=== PATIENT | female | born 2000 | race Hispanic/Latino ===

== ENCOUNTER → 2023-03-03 13:58 | Outpatient (CLI) | payer OTHER, SELFPAY ==
[2023-03-03 14:30] LABS: Add Manual Diff / Slide Review NO; Basophils Absolute Auto 100 /uL (0-100); Basophils Percent Auto 0.8 % (0-2); Eosinophils Absolute Auto 200 /uL (0-450); Eosinophils Percent Auto 2.2 % (2-4); Hematocrit 42.1 % (36-46); Hemoglobin 14.7 g/dL (12.0-16.0); Lymphocytes Absolute Auto 2000 /uL (1100-4500); Lymphocytes Percent Auto 27.1 % (25-40); Mean Corpuscular Hemoglobin 30.1 PG (26-34); Mean Corpuscular Volume 85.8 fL (80-100); Monocytes Absolute Auto 300 /uL (0-900); Monocytes Percent Auto 4.3 % (3-14); Neutrophils Absolute Auto 4700 /uL (1500-7000); Neutrophils Percent Auto 65.6 % (50-75); Platelet Count 314 X10^3/uL (150-400); Red Blood Cell Count 4.91 X10^6/uL (4.0-5.2); Red Cell Distribution Width 12.8 % (11.6-14.8); White Blood Cell Count 7.2 X10^3/uL (4.5-11.0)
[2023-03-03 14:57] LABS: Alanine Aminotransferase 36 IU/L (<35); Albumin Globulin Ratio 1.5 (1.0-2.8); Alkaline Phosphatase 69 U/L (38-126); Aspartate Aminotransferase 33 IU/L (14-36); BUN Creatinine Ratio 23.3 (6-22); Bilirubin Total 1.2 mg/dL (0.2-1.3); Blood Urea Nitrogen 14 mg/dL (7-17); Calcium 9.7 mg/dL (8.4-10.2); Carbon Dioxide 25 mmol/L (22-32); Chloride 104 mmol/L (98-107); Estimated Glomerular Filt Rate > 60 mL/min (>60); Globulin 3.4 g/dL (1.7-4.1); Glucose 95 mg/dL (70-100); HEMOLYSIS < 15 (0-50); Sodium 138 mmol/L (137-145); Total Protein 8.4 g/dL (6.3-8.2)
[2023-03-03 15:24] LABS: TSH w/ Reflex to FT4 1.21 uIU/mL (0.47-4.68)
[2023-03-03 15:49] LABS: Follicle Stimulating Hormone 5.47 mIU/mL
[2023-03-08 12:50] LABS: Estrogen 147 pg/mL (.)
== END ==
PROVIDERS: PCP Family Medicine; Referring Provider Family Medicine; Visit Provider Family Medicine
DX: Z00.00 Encounter for general adult medical examination without abnormal findings (principal); N92.6 Irregular menstruation, unspecified
CPT/HCPCS: 36415; 80053; 82672; 83001; 84144; 84443; 85025

== ENCOUNTER → 2023-05-13 08:52 | Outpatient (CLI) | payer OTHER, SELFPAY ==
[2023-05-13 10:06] LABS: Hemoglobin A1C% w Est Avg Glu 5.3 % (4.0-6.0)
[2023-05-13 10:16] LABS: Glucose 99 mg/dL (70-100)
[2023-05-13 10:29] LABS: Follicle Stimulating Hormone 5.51 mIU/mL
[2023-05-13 10:35] LABS: Free T4, Direct Thyroxine 1.25 ng/dL (0.78-2.19)
[2023-05-13 10:49] LABS: Thyroid Stimulating Hormone 1.56 uIU/mL (0.47-4.68)
[2023-05-15 11:50] LABS: Insulin Level Total 18.6 uIU/mL (2.6-24.9)
[2023-05-20 08:10] LABS: Percent Free Testosterone 1.79 % (0.50-2.80); Testosterone Free 0.56 ng/dL (0.10-0.85); Testosterone Total 31.5 ng/dL (10.0-55.0)
== END ==
PROVIDERS: PCP Family Medicine; Referring Provider Obstetrics & Gynecology; Visit Provider Obstetrics & Gynecology
DX: E28.2 Polycystic ovarian syndrome (principal)
CPT/HCPCS: 36415; 82627; 82947; 83001; 83002; 83036; 83525; 84402; 84403; 84439; 84443

== ENCOUNTER → 2023-06-09 09:56 | Outpatient (CLI) | payer OTHER, SELFPAY ==
--- NOTE | 2023-06-09 09:57 | DI.US.S_ITS ---
ULTRASOUND OF LEFT BREAST: 06/09/2023 CLINICAL: Intermittent pain in left breast. No prior exams were available for comparison. Color flow and real-time ultrasound of the left breast were performed. Sehll scale images of the real-time examination were reviewed. No significant abnormalities were seen sonographically in the left breast. A skin based possibly complicated (sebaceous) cyst measuring 3mm seen corresponding to lump in axilla. IMPRESSION: BENIGN There is no sonographic evidence of malignancy. There is no abnormality seen in the left breast to correspond with the area of clinical concern and pain, however, clinical correlation and clinical followup are recommended. Skin based possibly complicated (sebaceous) cyst measuring 3mm seen corresponding to lump in axilla. Clinical followup also recommended. This exam was interpreted at Station ID: [id number]. Electronically Signed By: Rodolfo Yeager M.D. lc/:06/09/2023 10:42:10 letter sent: Clinical Evaluation Ultrasound BI-RADS: 2 Benign
== END ==
PROVIDERS: PCP Family Medicine; Referring Provider Physician Assistant; Visit Provider Physician Assistant
DX: N64.4 Mastodynia (principal); M79.622 Pain in left upper arm; R92.8 Other abnormal and inconclusive findings on diagnostic imaging of breast
CPT/HCPCS: 76642

== ENCOUNTER 2025-01-15 11:18 | Emergency (ER) | payer OTHER, SELFPAY ==
[2025-01-15 11:20] VITALS: BP 138/88; PULSE 99; RESP 14; TEMP 36.5; O2SAT 98; BMI 29.0
--- NOTE | 2025-01-15 11:27 | ED.GENADULT ---
HPI - General Adult General Chief complaint: Nausea/Vomiting/Diarrhea Stated complaint: 9weeks , can't keep fluids down , Time Seen by Provider: 01/15/25 11:22 History of Present Illness HPI narrative: 24-year-old approximately 9 weeks 1st OB visit scheduled for tomorrow comes in with complaints of severe nausea and vomiting progressing to the point that she was not able to even keep water down today. She has not eaten for a couple of days she has dizzy when she stands up, she has a headache and she feels miserable. No vaginal discharge or bleeding, no fevers or cough. No abdominal cramping beyond that associated with the actual emesis. She has not taken any antiemetics but has been trying to keep her vitamins down. She said she had similar problems with her 1st and ended up losing 40 lb in the 1st half of her due to hyperemesis. Related Data Home Medications ?Medication ?Instructions ?Recorded ?Confirmed vitamin-ferrous sulfate tab PO 01/07/25 01/07/25 27 mg iron-folic acid 0.8 mg tablet Previous Rx's ?Medication ?Instructions ?Recorded ondansetron 4 mg disintegrating 4 mg PO Q8H PRN nausea and 01/15/25 tablet vomiting #20 tabs Allergies Allergy/AdvReac Type Severity Reaction Status Date / Time No Known Drug Allergies Allergy Unverified 01/15/25 11:25 Review of Systems Review of Systems Narrative: Pertinent positive and negative findings as per HPI Patient History Medical History Polyhydramnios Premature delivery Surgical History [place] teeth extracted Family History Family/Other Cancer Sister Asthma Mother Sarcoidosis Social History marital status: number of children: 1 household members: spouse and children lives independently: Yes caregiver/support person: Yes housing: condominium pets and animals: No education level: high school occupational status: unemployed current occupational exposures/hazards: No special alvarado needs: No travel history: over 6 months ago seatbelt use: always water heater temp set < 120 deg: Yes working smoke detector in home: Yes fire extinguisher in home: No carbon monox detector in home: Yes firearms in home: No do you feel safe at home: Yes Smoking Status: Unknown if ever smoked second hand exposure: No alcohol intake: former (rarely when not ) substance use type: does not use during the past year weight has: other (~15 lb range fluctuation) well-balanced diet: daily or most days daily servings fruits/ve-4 caffeine: No Type(s) of exercise: walking Exam Initial Vital Signs Initial Vital Signs: Vital Signs Temperature 97.7 F 01/15/25 11:20 Pulse Rate 99 H 01/15/25 11:20 Respiratory Rate 14 01/15/25 11:20 Blood Pressure 138/88 01/15/25 11:20 Pulse Oximetry 98 01/15/25 11:20 Oxygen Delivery Method Room Air 01/15/25 11:20 General: Healthy appearing, in no acute distress. Able to give a complete and coherent history. HEENT: Dry mucous membranes, normal sclera with reactive pupils, Respiratory: Full and symmetrical air movement Cardiac: Tachycardic but otherwise Regular rate and rhythm no murmurs Abdomen: Soft, nontender, no rebound or guarding, no flank pain Skin: Warm and dry, no rashes Neurologic: Grossly neurologically intact with no obvious asymmetries or abnormalities Extremities: No trauma, well perfused Psych: Cooperative, appropriate insight and affect Bedside ultrasound confirms intrauterine fetus with cardiac activity, still very early Course Orders Ordered: ED Orders 01/15/25 11:26 Urinalysis and Microscopic Stat 01/15/25 11:31 Complete Blood Count AUTO DIFF Stat Comprehensive Metabolic Panel Stat TSH w/ Reflex to FT4 Stat Discontinued Medications Sodium Chloride (Normal Saline 0.9%) 1,000 mls @ 1,000 mls/hr IV BOLUS ONE Stop: 01/15/25 12:25 Last Admin: 01/15/25 11:42 Dose: 1,000 mls/hr Documented By: EBONY Sodium Chloride (Normal Saline 0.9%) 1,000 mls @ 1,000 mls/hr IV BOLUS ONE Stop: 01/15/25 12:26 Last Admin: 01/15/25 11:42 Dose: 1,000 mls/hr Documented By: ES Ondansetron HCl (Ondansetron 4 Mg/2 Ml Inj) 4 mg IV NOW ONE Stop: 01/15/25 11:27 Last Admin: 01/15/25 11:42 Dose: 4 mg Documented By: EBONY Vital Signs Vital signs: Vital Signs - 8 hr 01/15/25 11:20 Temperature 97.7 F Pulse Rate 99 H Respiratory Rate 14 Blood Pressure 138/88 Pulse Oximetry 98 Oxygen Delivery Method Room Air Medical Decision Making Lab Data 01/15/25 11:31 01/15/25 11:31 Labs: Lab Results 01/15/25 Range/Units 11:31 WBC 9.7 (4.5-11.0) X10^3/uL RBC 4.96 (4.0-5.2) X10^6/uL Hgb 15.2 (12.0-16.0) g/dL Hct 43.0 (36-46) % MCV 86.8 (80-100) fL MCH 30.6 (26-34) PG MCHC 35.3 (30-36) % RDW 13.0 (11.6-14.8) % Plt Count 321 (150-400) X10^3/uL Neut % (Auto) 77.5 H (50-75) % Lymph % (Auto) 17.6 L (25-40) % [place] % (Auto) 3.7 (3-14) % Eos % (Auto) 0.5 L (2-4) % Baso % (Auto) 0.7 (0-2) % Neut # (Auto) 7500 H (0435-1608) /uL Lymph # (Auto) 1700 (9140-0253) /uL [place] # (Auto) 400 (0-900) /uL Eos # (Auto) 0 (0-450) /uL Baso # (Auto) 100 (0-100) /uL Sodium 136 L (137-145) mmol/L Potassium 3.7 (3.4-5.1) mmol/L Chloride 103 (98-107) mmol/L Carbon Dioxide 22 (22-32) mmol/L BUN 9 (7-17) mg/dL Creatinine 0.56 (0.52-1.04) mg/dL Estimated GFR > 60 (>60) mL/min BUN/Creatinine Ratio 16.1 (6-22) Glucose 94 (70-99) mg/dL Calcium 9.7 (8.4-10.2) mg/dL Total Bilirubin 1.1 (0.2-1.3) mg/dL AST 26 (14-36) IU/L ALT 21 (<35) IU/L Alkaline Phosphatase 63 (38-126) U/L Total Protein 8.6 H (6.3-8.2) g/dL Albumin 4.9 (3.5-5.0) g/dL Globulin 3.7 (1.7-4.1) g/dL Albumin/Globulin Ratio 1.3 (1.0-2.8) TSH 1.03 (0.47-4.68) uIU/mL MDM Narrative Medical decision making narrative: CC: Nausea and vomiting, unable to eat or drink Complicating co-morbidities: Approximately 9 weeks , similar severity of vomiting with 1st Data collected from: patient Medical records reviewed: [employer] and primary care notes reviewed Differential considered: Hyperemesis gravidarum, nausea and vomiting of early , viral gastroenteritis, infection Exam documented above, pertinent findings include: Patient's exam is actually fairly benign. Mild mucous membranes, she is moderately orthostatic by heart rate in walking into the room. Bedside ultrasound does confirm intrauterine viable fetus Lab Test results independently reviewed as above. Pertinent findings: CBC is reassuring Chemistries are unremarkable TSH is appropriate Treatments: 2 L of fluid, ondansetron Discussion: 24-year-old approximately 9 weeks gestational age with significant nausea and vomiting. Moderate dehydration. Feeling significantly improved after 2 L of IV fluid and a single dose of Zofran. With shared decision-making she would like a prescription of Zofran to vegetable picker prior to keeping her 1st OB appointment tomorrow. No signs of infection, identified in the uterus with no concern for ectopic . Questions are answered and she is safe for discharge Discharge Plan Departure Patient Disposition: Home Clinical Impression: Hyperemesis arising during , Early stage of , Acute dehydration Instructions: DI for Hyperemesis Gravidarum Activity Restrictions/Additional Instructions: Thank you for coming in today I am glad that you feel better after the 2 L of IV fluid that you got in the emergency department. Your blood work looks good. The brief ultrasound in the emergency department shows happy baby with a nice heart beat right in the middle of your uterus as it should be. I have sent a prescription for ondansetron, the nausea medication we used in your IV, to [facility] in [place] to use for nausea if needed Please do keep your appointment with Dr. Weinberg tomorrow. Prescriptions: New ondansetron 4 mg tablet,disintegrating 4 mg PO Q8H PRN (Reason: nausea and vomiting) Qty: 20 0RF No Action vit-ferrous sulfat-FA 27 mg iron- 0.8 mg tablet PO Referrals: Vlad Capellan, [Primary Care Provider, Family Practice] Stand Alone Forms: Patient Portal/API
[2025-01-15 11:42] LABS: Add Manual Diff / Slide Review NO; Hematocrit 43.0 % (36-46); Hemoglobin 15.2 g/dL (12.0-16.0); Lymphocytes Absolute Auto 1700 /uL (1100-4500); Mean Corpuscular HGB Conc 35.3 % (30-36); Mean Corpuscular Hemoglobin 30.6 PG (26-34); Mean Corpuscular Volume 86.8 fL (80-100); Platelet Count 321 X10^3/uL (150-400)
[2025-01-15] MEDS: ONDANSETRON 4 MG/2 ML INJ IV (11:42)
[2025-01-15] MEDS: SODIUM CHLORIDE 0.9% 1,000 ML 1000 ML IV ×2 (11:42)
[2025-01-15 11:48] VITALS: PULSE 73; RESP 20; O2SAT 100
[2025-01-15 11:55] LABS: Alanine Aminotransferase 21 IU/L (<35); Albumin 4.9 g/dL (3.5-5.0); Albumin Globulin Ratio 1.3 (1.0-2.8); Alkaline Phosphatase 63 U/L (38-126); Blood Urea Nitrogen 9 mg/dL (7-17); Calcium 9.7 mg/dL (8.4-10.2); Carbon Dioxide 22 mmol/L (22-32); Chloride 103 mmol/L (98-107); Estimated Glomerular Filt Rate > 60 mL/min (>60); Globulin 3.7 g/dL (1.7-4.1); Glucose 94 mg/dL (70-99); HEMOLYSIS < 15 (0-50); Potassium 3.7 mmol/L (3.4-5.1); Sodium 136 mmol/L (137-145); Total Protein 8.6 g/dL (6.3-8.2)
[2025-01-15 12:00] VITALS: PULSE 88; RESP 24; O2SAT 100
[2025-01-15 12:26] LABS: TSH w/ Reflex to FT4 1.03 uIU/mL (0.47-4.68)
[2025-01-15 12:30] VITALS: PULSE 79; RESP 31; O2SAT 100
[2025-01-15 12:40] VITALS: BP 108/65; PULSE 77; RESP 25; O2SAT 100
[2025-01-15 13:00] VITALS: BP 107/58; PULSE 68; RESP 29; O2SAT 100
[2025-01-15 13:01] LABS: Appearance Urine UA CLEAR; Bilirubin Urine UA NEGATIVE (NEGATIVE); Color Urine UA YELLOW; Glucose Urine UA NEGATIVE (Negative); Ketones Urine UA 1+ (NEGATIVE); Leukocyte Esterase Urine UA NEGATIVE (NEGATIVE); Nitrite Urine UA NEGATIVE (Negative); Occult Blood Urine UA NEGATIVE (Negative); Protein Urine UA NEGATIVE (Negative); Specific Gravity Urine UA <=1.005 (1.000-1.035); Urobilinogen Urine UA 0.2 E.U./dL (0.2)
[2025-01-15 13:07] LABS: pH Urine UA 6.5 (4.5-8.0)
[2025-01-15 13:09] LABS: Culture Indicated Urine Cult Not Indicated
== END 2025-01-15 13:20 | disposition home or self-care (01) ==
PROVIDERS: Emergency Provider Emergency Medicine; PCP Family Medicine
DX: O21.0 Mild hyperemesis gravidarum (principal); O26.891 Other specified pregnancy related conditions, first trimester; E86.0 Dehydration; Z3A.09 9 weeks gestation of pregnancy
CPT/HCPCS: 36415; 80053; 81001; 84443; 85025; 96361; 96374; 99284; J2405

== ENCOUNTER → 2025-01-18 13:38 | Outpatient (CLI) | payer OTHER, SELFPAY ==
[2025-01-18 16:20] LABS: Urine N gonorrhoeae NOT DETECTED
[2025-01-18 16:34] LABS: Urine Chlamydia NOT DETECTED
== END ==
PROVIDERS: Visit Provider Obstetrics & Gynecology
DX: Z11.3 Encounter for screening for infections with a predominantly sexual mode of transmission (principal)
CPT/HCPCS: 87491; 87591

== ENCOUNTER 2025-01-28 14:18 | Emergency (ER) | payer OTHER, SELFPAY ==
[2025-01-28] VITALS (8 sets, daily range): BP systolic 101–144; BP diastolic 64–81; PULSE 65–96; RESP 15–18; TEMP 36.6–36.7; O2SAT 96–100; BMI 29.0
[2025-01-28] MEDS: SODIUM CHLORIDE 0.9% 500 ML 1000 ML IV (15:37)
[2025-01-28] MEDS: PYRIDOXINE (VITAMIN B6) 50 MG TABLET PO ×3 (16:40→17:15)
[2025-01-28 17:03] LABS: Culture Indicated Urine Cult Not Indicated
--- NOTE | 2025-01-28 17:24 | ED.NAVMDI ---
HPI - Nausea/Vomiting/Diarrhea General Chief complaint: Nausea/Vomiting/Diarrhea Stated complaint: N/V , 7 weeks along Time Seen by Provider: 01/28/25 14:56 Source: patient Mode of arrival: Ambulatory History of Present Illness HPI Narrative: 24-year-old female at 7 weeks gestation feeling tender nausea and vomiting. She has been feeling this way throughout most of her . She has tried some Zofran without much success. No other symptoms. Related Data Home Medications ?Medication ?Instructions ?Recorded ?Confirmed vitamin-ferrous sulfate tab PO 01/07/25 01/18/25 27 mg iron-folic acid 0.8 mg tablet Previous Rx's ?Medication ?Instructions ?Recorded ondansetron 4 mg disintegrating 4 mg PO Q8H PRN nausea and 01/15/25 tablet vomiting #20 tabs Allergies Allergy/AdvReac Type Severity Reaction Status Date / Time No Known Drug Allergies Allergy Verified 01/28/25 14:39 Review of Systems Review of Systems ROS Unobtainable: All systems reviewed & are unremarkable except as noted in HPI and below Patient History Medical History Polyhydramnios Premature delivery Surgical History [place] teeth extracted Family History Family/Other Cancer Sister Asthma Mother Sarcoidosis Social History marital status: number of children: 1 household members: spouse and children lives independently: Yes caregiver/support person: Yes housing: condominium pets and animals: No education level: high school occupational status: unemployed current occupational exposures/hazards: No special alvarado needs: No travel history: over 6 months ago seatbelt use: always water heater temp set < 120 deg: Yes working smoke detector in home: Yes fire extinguisher in home: No carbon monox detector in home: Yes firearms in home: No do you feel safe at home: Yes second hand exposure: No alcohol intake: former (rarely when not ) substance use type: does not use during the past year weight has: other (~15 lb range fluctuation) well-balanced diet: daily or most days daily servings fruits/ve-4 caffeine: No Type(s) of exercise: walking Exam Initial Vital Signs Initial Vital Signs: Vital Signs Temperature 97.9 F 01/28/25 14:35 Pulse Rate 74 01/28/25 14:35 Respiratory Rate 18 01/28/25 14:35 Blood Pressure 144/81 H 01/28/25 14:35 Pulse Oximetry 100 01/28/25 14:35 Oxygen Delivery Method Room Air 01/28/25 14:35 General: Patient appears to be in no acute distress, acting appropriately Head: normocephalic, atraumatic, HEENT: Pupils equal round reactive, eyes tracking well, neck supple, no JVD Heart: regular rate and rhythm, no murmurs, rubs, or gallops heard Lungs: clear to auscultation, no adventitious sounds Abdomen: soft , nontender, nondistended, positive bowel sounds Neurological: no focal neurological signs, moving all extremities well, alert and oriented x3, Psych: good judgment ,good insight, mood is normal. Course Course Course Narrative: Patient feeling better after vitamin B6 p.o. dose and IV 1 L normal saline. Orders Ordered: ED Orders 01/28/25 16:41 Test Urine Stat Urine Microscopic Stat Sodium Chloride (Normal Saline 0.9%) 500 mls @ 1,000 mls/hr IV BOLUS PRN PRN Reason: Fluid replacement Last Infusion: 01/28/25 16:42 Dose: Infused Documented By: Admin: 01/28/25 15:37 Dose: 1,000 mls/hr Documented By: Pyridoxine HCl (Pyridoxine (Vitamin B6) 50 Mg Tablet) 50 mg PO DAILY [facility] Last Admin: 01/28/25 17:15 Dose: 50 mg Documented By: Discontinued Medications Ondansetron HCl (Ondansetron 4 Mg/2 Ml Inj) 4 mg IV NOW ONE Stop: 01/28/25 15:35 Last Admin: 01/28/25 15:40 Dose: Not Given Documented By: Pyridoxine HCl (Pyridoxine (Vitamin B6) 50 Mg Tablet) 50 mg PO DAILY [facility] Last Admin: 01/28/25 16:42 Dose: 50 mg Documented By: Admin: 01/28/25 16:40 Dose: 50 mg Documented By: Reevaluation(s) Reevaluation #1: Upon re-evaluation, patient is able to hold down some food and feeling better and ready to be discharged. Time: 17:27 Vital Signs Vital signs: Vital Signs - 8 hr 01/28/25 14:35 01/28/25 15:42 01/28/25 15:43 Temperature 97.9 F Pulse Rate 74 87 85 Respiratory Rate 18 Blood Pressure 144/81 H Pulse Oximetry 100 96 100 Oxygen Delivery Method Room Air 01/28/25 15:43 01/28/25 16:00 01/28/25 16:00 Temperature Pulse Rate 71 Respiratory Rate Blood Pressure 133/77 101/64 Pulse Oximetry 100 Oxygen Delivery Method 01/28/25 16:30 01/28/25 16:40 01/28/25 16:40 Temperature Pulse Rate 96 H 88 Respiratory Rate Blood Pressure 110/73 Pulse Oximetry 98 99 Oxygen Delivery Method Room Air 01/28/25 17:00 Temperature Pulse Rate 75 Respiratory Rate Blood Pressure Pulse Oximetry 99 Oxygen Delivery Method MDM - Nausea/Vomiting/Diarrhea Differential Diagnosis Differential diagnosis: Likely gastroenteritis, dehydration and other (nausea and vomiting in ) Lab Data Labs: Lab Results 01/28/25 Range/Units 16:41 Urine RBC 0-1/hpf (0-5/HPF) Urine WBC 0-1/hpf (0-5/HPF) Ur Squamous Epith Cells 5-10 /hpf H (0-5/HPF) Urine Bacteria None seen (None) Ur Culture Indicated? Cult not indicated Vol Urine Centrifuged 10ml (spun) Urine Test Positive H (Negative) Point of Care Testing Test Results Positive Urine Dip Bedside Urine Glucose Negative Bedside Urine Bilirubin - Negative Bedside Urine Ketone +++ 80 Urine Specific [place] 1.015 Bedside Urine Occult Blood - Negative Bedside Urine pH 6.0 Bedside Urine Protein - Negative Bedside Urine Urobilinogen - Negative Bedside Urine Nitrite - Negative Bedside Urine Leukocytes - Negative Esterase MDM Narrative Medical decision making narrative: Patient's symptoms resolved at this point after vitamin B6 50 mg 1 tab p.o. and IV 1 L normal saline. Advised to continue with vitamin B6 25 mg q.i.d. to prevent nausea and vomiting. Can take some Unisom as well as needed. Discharge Plan Departure Patient Disposition: Home Clinical Impression: Nausea and vomiting during Instructions: Nausea of (Alternative Therapy) Activity Restrictions/Additional Instructions: Take vitamin B6 25 mg 3 times a day to prevent nausea and vomiting during . Can also take some Unisom as needed. Follow up with OB provider as planned. Prescriptions: No Action vit-ferrous sulfat-FA 27 mg iron- 0.8 mg tablet PO ondansetron 4 mg tablet,disintegrating 4 mg PO Q8H PRN (Reason: nausea and vomiting) Qty: 20 0RF Referrals: ProviderRandal [Primary Care Provider, Family Practice] Stand Alone Forms: Patient Portal/API
== END 2025-01-28 17:47 | disposition home or self-care (01) ==
PROVIDERS: Emergency Provider Family Medicine
DX: O21.9 Vomiting of pregnancy, unspecified (principal); Z3A.01 Less than 8 weeks gestation of pregnancy
CPT/HCPCS: 81003; 81015; 81025; 96360; 99284

== ENCOUNTER 2025-02-10 14:07 | Emergency (ER) | payer OTHER, SELFPAY ==
[2025-02-10 14:33] VITALS: BP 129/77; PULSE 82; RESP 14; TEMP 36.5; O2SAT 99; BMI 28.1
[2025-02-10] MEDS: ONDANSETRON 4 MG/2 ML INJ IV (15:32)
[2025-02-10] MEDS: SODIUM CHLORIDE 0.9% 1,000 ML 1000 ML IV ×2 (15:32→16:11)
[2025-02-10 15:36] LABS: Add Manual Diff / Slide Review NO; Hematocrit 42.8 % (36-46); Hemoglobin 14.8 g/dL (12.0-16.0); Lymphocytes Absolute Auto 1300 /uL (1100-4500); Mean Corpuscular HGB Conc 34.6 % (30-36); Mean Corpuscular Hemoglobin 30.5 PG (26-34); Mean Corpuscular Volume 88.1 fL (80-100); Platelet Count 285 X10^3/uL (150-400)
[2025-02-10 15:45] LABS: Magnesium 1.8 mg/dL (1.6-2.3)
[2025-02-10 15:46] LABS: Alanine Aminotransferase 29 IU/L (<35); Albumin 4.7 g/dL (3.5-5.0); Albumin Globulin Ratio 1.3 (1.0-2.8); Alkaline Phosphatase 47 U/L (38-126); Blood Urea Nitrogen 8 mg/dL (7-17); Calcium 9.6 mg/dL (8.4-10.2); Carbon Dioxide 19 mmol/L (22-32); Chloride 103 mmol/L (98-107); Estimated Glomerular Filt Rate > 60 mL/min (>60); Globulin 3.7 g/dL (1.7-4.1); Glucose 81 mg/dL (70-99); HEMOLYSIS 46 (0-50); Lipase 85 U/L (23-300); Potassium 3.9 mmol/L (3.4-5.1); Sodium 134 mmol/L (137-145); Total Protein 8.4 g/dL (6.3-8.2)
--- NOTE | 2025-02-10 16:06 | ED.NAVMDI ---
HPI - Nausea/Vomiting/Diarrhea General Chief complaint: Nausea/Vomiting/Diarrhea Stated complaint: Vomitting for 2days, weak, headache and dizzy Time Seen by Provider: 02/10/25 15:05 Source: patient Mode of arrival: Ambulatory History of Present Illness HPI Narrative: Ms. Deo Johnson is a very pleasant 24-year-old female, currently 10 weeks , with a healthy 3-year-old, who presents to the emergency department for nausea and vomiting x3 days. This is patient's 3rd ER visit for IV fluids during this , she has been struggling with hyperemesis. Patient has not been able to keep down a meal since Tuesday, nothing his appetite using and she is often vomiting. Yesterday she was able to keep down some Pedialyte but this morning even when she tried to drink Pedialyte she threw up which caused her to come to the ED. the vomiting was causing her to have a headache and feel dizzy as well, since receiving a L of IV fluids at my time of consultation states that her headache has completely resolved. She denies any abdominal pain, vaginal discharge or bleeding, fevers or any other concerns. She does have a prescription for Reglan at home however this does not work for her, Unisom as effective but makes her very sleepy. She does not have Zofran at home at this time. Related Data Home Medications ?Medication ?Instructions ?Recorded ?Confirmed vitamin-ferrous sulfate tab PO 01/07/25 02/05/25 27 mg iron-folic acid 0.8 mg tablet Previous Rx's ?Medication ?Instructions ?Recorded ondansetron 4 mg disintegrating 4 mg PO Q8H PRN nausea and 01/15/25 tablet vomiting #20 tabs metoclopramide HCl 10 mg tablet 10 mg PO TID PRN nausea and 01/29/25 (Reglan) vomiting #30 tabs ondansetron 4 mg disintegrating 4 mg PO Q8H PRN nausea and 02/10/25 tablet vomiting #20 tabs Allergies Allergy/AdvReac Type Severity Reaction Status Date / Time No Known Drug Allergies Allergy Verified 02/10/25 14:33 Review of Systems Review of Systems ROS Unobtainable: All systems reviewed & are unremarkable except as noted in HPI and below Patient History Medical History Polyhydramnios Premature delivery Surgical History [place] teeth extracted Family History Family/Other Cancer Sister Asthma Mother Sarcoidosis Social History marital status: number of children: 1 household members: spouse and children lives independently: Yes caregiver/support person: Yes housing: condominium pets and animals: No education level: high school occupational status: unemployed current occupational exposures/hazards: No special alvarado needs: No travel history: over 6 months ago seatbelt use: always water heater temp set < 120 deg: Yes working smoke detector in home: Yes fire extinguisher in home: No carbon monox detector in home: Yes firearms in home: No do you feel safe at home: Yes Smoking Status: Never smoker second hand exposure: No alcohol intake: former (rarely when not ) substance use type: does not use during the past year weight has: other (~15 lb range fluctuation) well-balanced diet: daily or most days daily servings fruits/ve-4 caffeine: No Type(s) of exercise: walking Smoking Status: Never smoker Exam Narrative Exam Narrative: GENERAL: 24 year old patient appears stated age. Well-developed patient, in no acute distress. She has already received 1 L of IV fluids at my time of examination. HEAD: Atraumatic. Normocephalic. EYES: No scleral icterus. No injection or drainage. NECK: Trachea midline. Cervical ROM intact. CARDIOVASCULAR: Regular rate and rhythm. RESPIRATORY: ?Nonlabored respirations. ?Speaking in clear, full sentences. ?Clear to auscultation. Breath sounds equal bilaterally. No wheezes, rales, or rhonchi. ? GASTROINTESTINAL: Abdomen soft, non-tender, nondistended. BS present. EXTREMITIES: No edema or joint tenderness. NEURO: AOx3. ?Clear speech. ?Moves all 4 extremities appropriately. SKIN: No rash or erythema of visible areas Initial Vital Signs Initial Vital Signs: Vital Signs Temperature 97.7 F 02/10/25 14:33 Pulse Rate 82 02/10/25 14:33 Respiratory Rate 14 02/10/25 14:33 Blood Pressure 129/77 02/10/25 14:33 Pulse Oximetry 99 02/10/25 14:33 Oxygen Delivery Method Room Air 02/10/25 14:33 Course Orders Ordered: ED Orders 02/10/25 15:23 Complete Blood Count AUTO DIFF Stat Comprehensive Metabolic Panel Stat Lipase Stat Magnesium Stat 02/10/25 16:45 Urine Microscopic Stat Ondansetron HCl (Ondansetron 4 Mg/2 Ml Inj) 4 mg IV NOW PRN PRN Reason: Nausea And Vomiting Last Admin: 02/10/25 15:32 Dose: 4 mg Documented By: MARI Ondansetron HCl (Ondansetron 4 Mg Odt) 4 mg PO NOW PRN PRN Reason: Nausea And Vomiting Discontinued Medications Acetaminophen (Acetaminophen 325 Mg Tablet) 975 mg PO NOW ONE Stop: 02/10/25 15:07 Sodium Chloride (Normal Saline 0.9%) 1,000 mls @ 1,000 mls/hr IV BOLUS ONE Stop: 02/10/25 15:36 Last Infusion: 02/10/25 16:11 Dose: Infused Documented By: Admin: 02/10/25 15:32 Dose: 1,000 mls/hr Documented By: MARI Sodium Chloride (Normal Saline 0.9%) 1,000 mls @ 1,000 mls/hr IV BOLUS ONE Stop: 02/10/25 16:05 Last Infusion: 02/10/25 17:19 Dose: Infused Documented By: Admin: 02/10/25 16:11 Dose: 1,000 mls/hr Documented By: MARI Vital Signs Vital signs: Vital Signs - 8 hr 02/10/25 14:33 Temperature 97.7 F Pulse Rate 82 Respiratory Rate 14 Blood Pressure 129/77 Pulse Oximetry 99 Oxygen Delivery Method Room Air MDM - Nausea/Vomiting/Diarrhea Medical Records Attestation: I reviewed the patient's medical records. Lab Data 02/10/25 15:23 02/10/25 15:23 Labs: Lab Results 02/10/25 Range/Units 15:23 WBC 10.1 (4.5-11.0) X10^3/uL RBC 4.86 (4.0-5.2) X10^6/uL Hgb 14.8 (12.0-16.0) g/dL Hct 42.8 (36-46) % MCV 88.1 (80-100) fL MCH 30.5 (26-34) PG MCHC 34.6 (30-36) % RDW 13.2 (11.6-14.8) % Plt Count 285 (150-400) X10^3/uL Neut % (Auto) 81.7 H (50-75) % Lymph % (Auto) 13.1 L (25-40) % [place] % (Auto) 3.9 (3-14) % Eos % (Auto) 0.6 L (2-4) % Baso % (Auto) 0.7 (0-2) % Neut # (Auto) 8200 H (4886-2479) /uL Lymph # (Auto) 1300 (8325-1607) /uL [place] # (Auto) 400 (0-900) /uL Eos # (Auto) 100 (0-450) /uL Baso # (Auto) 100 (0-100) /uL Sodium 134 L (137-145) mmol/L Potassium 3.9 (3.4-5.1) mmol/L Chloride 103 (98-107) mmol/L Carbon Dioxide 19 L (22-32) mmol/L BUN 8 (7-17) mg/dL Creatinine 0.49 L (0.52-1.04) mg/dL Estimated GFR > 60 (>60) mL/min BUN/Creatinine Ratio 16.3 (6-22) Glucose 81 (70-99) mg/dL Calcium 9.6 (8.4-10.2) mg/dL Magnesium 1.8 (1.6-2.3) mg/dL Total Bilirubin 1.5 H (0.2-1.3) mg/dL AST 35 (14-36) IU/L ALT 29 (<35) IU/L Alkaline Phosphatase 47 (38-126) U/L Total Protein 8.4 H (6.3-8.2) g/dL Albumin 4.7 (3.5-5.0) g/dL Globulin 3.7 (1.7-4.1) g/dL Albumin/Globulin Ratio 1.3 (1.0-2.8) Lipase 85 (23-300) U/L Point of Care Testing Test Results Positive Urine Dip Bedside Urine Glucose Negative Bedside Urine Bilirubin - Negative Bedside Urine Ketone +++ 80 Urine Specific [place] 1.025 Bedside Urine Occult Blood +/- Bedside Urine pH 6.0 Bedside Urine Protein +/- 15 Bedside Urine Urobilinogen - Negative Bedside Urine Nitrite - Negative Bedside Urine Leukocytes - Negative Esterase MDM Narrative Medical decision making narrative: 24-year-old female, currently 10 weeks , with a healthy 3-year-old, who presents to the emergency department for nausea and vomiting x3 days. Differential diagnosis includes but is not limited to hyperemesis gravidarum, dehydration, electrolyte abnormality, gastroenteritis, etc. On exam patient is in no acute distress, nontoxic-appearing, all vital signs within normal limits. Abdomen soft and nontender, lungs clear to auscultation bilaterally. She will initially treated with 1 L of IV fluids, Tylenol and Zofran and is feeling significant improvement. We will treat with additional L of fluids and attempt p.o. challenge. Labs reveal normal WBC count 10.1, hemoglobin 14.8 hematocrit 42.8. Sodium 134, potassium 3.9, glucose 81, BUN 8 creatinine 0.49. Magnesium normal 1.8. Total bilirubin is slightly elevated at 1.5. Remainder of LFTs within normal limits. Normal lipase 85. Urinalysis does reveal ketones. Patient denies any dysuria, states that she is feeling much better, happy, ready to go home, tolerating p.o. Discussed the importance of prompt follow up with OBGYN for continued management of symptoms. Discussed supportive care, sent prescription for Zofran. ED return precautions discussed. Patient verbalized understanding of all information and in his eagerly requesting discharge home. She is stable for discharge. Discharge Plan Departure Patient Disposition: Home Clinical Impression: Nausea and vomiting during , Acute dehydration Instructions: DI for Dehydration -- Adult, DI for Vomiting -- Adult Activity Restrictions/Additional Instructions: Dear Ms. Desouza Johnson, Thank you for coming to the emergency department. I am very sorry that you are experiencing such significant nausea and vomiting during her . Your lab work and urine today revealed that you were quite dehydrated. I am glad that you are feeling much better. Please call your OBGYN as soon as possible to let them know about your symptoms to see if they can set you up with the additional treatment. You have been prescribed Zofran to use if needed. Please focus on hydration and take small but frequent sips of water, Pedialyte, Gatorade or any other beverages that you can keep down. You can even use Pedialyte to make ice pops if that helps. Please follow up with your primary care doctor within the next 2-3 days for ER follow-up. (If you do not have a PCP you can call [phone]. ?to schedule an appointment with an [facility] Primary Care Provider) IF YOU DEVELOP ANY NEW OR WORSENING SYMPTOMS, RETURN TO THE ER! Please read the attached instructions, they highlight more specific treatments and interventions for you at home. Thank you for letting me participate in your care, Heidi Melissa PA-C Prescriptions: New ondansetron 4 mg tablet,disintegrating 4 mg PO Q8H PRN (Reason: nausea and vomiting) Qty: 20 0RF No Action metoclopramide HCl [Reglan] 10 mg tablet 10 mg PO TID PRN (Reason: nausea and vomiting) Qty: 30 2RF Rx Instructions: administer 30 minutes before meals vit-ferrous sulfat-FA 27 mg iron- 0.8 mg tablet PO ondansetron 4 mg tablet,disintegrating 4 mg PO Q8H PRN (Reason: nausea and vomiting) Qty: 20 0RF Referrals: ProviderRandal [Primary Care Provider, Family Practice] Stand Alone Forms: Patient Portal/API
[2025-02-10 17:20] VITALS: BP 112/68; PULSE 64; RESP 14; TEMP 37; O2SAT 99
[2025-02-10] MEDS: ACETAMINOPHEN 325 MG TABLET 975 MG PO (17:25)
[2025-02-10 17:45] LABS: Culture Indicated Urine Cult Not Indicated
== END 2025-02-10 17:35 | disposition home or self-care (01) ==
PROVIDERS: Family Medicine; Emergency Provider Physician Assistant
DX: O21.9 Vomiting of pregnancy, unspecified (principal); E86.0 Dehydration; Z3A.10 10 weeks gestation of pregnancy
CPT/HCPCS: 36415; 80053; 81003; 81015; 81025; 83690; 83735; 85025; 96361; 96374; 99284; J2405

== ENCOUNTER → 2025-02-13 13:39 | Outpatient (CLI) | payer OTHER, SELFPAY ==
[2025-02-13 14:24] LABS: Add Manual Diff / Slide Review NO; Hematocrit 38.4 % (36-46); Hemoglobin 13.9 g/dL (12.0-16.0); Lymphocytes Absolute Auto 1700 /uL (1100-4500); Mean Corpuscular Hemoglobin 31.1 PG (26-34); Mean Corpuscular Volume 86.0 fL (80-100); Platelet Count 265 X10^3/uL (150-400)
[2025-02-13 14:34] LABS: Hemoglobin A1C% w Est Avg Glu 4.9 % (4.0-6.0)
[2025-02-13 14:43] LABS: Natera Collection Specimen Collected
[2025-02-13 15:45] LABS: Mean Corpuscular HGB Conc 34.4 % (30-36)
[2025-02-13 15:47] LABS: Polychromasia 1+; Rouleaux 1+
[2025-02-14 15:47] LABS: Hepatitis B Surface Antigen NEGATIVE s/c (NEGATIVE)
[2025-02-14 16:15] LABS: HIV 1 & 2 Ab/Ag 4th Gen Combo NEGATIVE (NEGATIVE); Hep C Virus Ab w/Reflex Quant NEGATIVE s/c (NEGATIVE)
== END ==
PROVIDERS: Referring Provider Obstetrics & Gynecology; Visit Provider Obstetrics & Gynecology
DX: O09.899 Supervision of other high risk pregnancies, unspecified trimester (principal); E88.819 Insulin resistance, unspecified; Z3A.10 10 weeks gestation of pregnancy; E28.2 Polycystic ovarian syndrome
CPT/HCPCS: 36415; 80055; 83036; 86787; 86803; 86850; 86900; 86901; 87389

== ENCOUNTER → 2025-03-20 09:54 | Outpatient (CLI) | payer OTHER, SELFPAY | PROVIDERS: Referring Provider Obstetrics & Gynecology; Visit Provider Obstetrics & Gynecology | DX: Z34.82 Encounter for supervision of other normal pregnancy, second trimester (principal) | CPT/HCPCS: 36415; 82105 ==

== ENCOUNTER → 2025-04-22 09:02 | Outpatient (CLI) | payer OTHER, SELFPAY ==
--- NOTE | 2025-04-22 09:03 | DI.US.S_ITS ---
PROCEDURE: US OB >= 14 WEEKS FETUS INDICATIONS: anatomy scan OUTSIDE/PRIOR DATING DATA: Last menstrual period (LMP): 11/13/2024. First dating scan (date and location): 03/04/2025. Estimated date of delivery ([facility]) from first dating scan: 09/08/2025. The calculations are made using the ultrasound [facility] of 09/08/2025. TECHNIQUE: Real-time scanning was performed of the fetus, with image documentation and biometric measurements. Endovaginal scanning: Not performed COMPARISON: [facility], US, US OB <= 14 WEEKS FETUS, 03/04/2025, 14:59. FINDINGS: General: A single living intrauterine gestation is present. Presentation: Breech. Placenta: Placental position is posterior, without previa. Amniotic fluid index: 12.7 cm, normal range is 5-24 cm. Single deepest vertical pocket is 4.4 cm. heart rate: 153 beats per minute. Maternal cervical canal: 2.3 cm long. Normal lower limit is 2.5 cm. biometrics: Biparietal diameter: 4.7 cm, 20 weeks 1 day Head circumference: 17.8 cm, 20 weeks 2 days Abdominal circumference: 16.0 cm, 21 weeks 1 day Femur length: 3.3 cm, 20 weeks 1 day Clinically estimated gestational age: 20 weeks 1 day Composite gestational age from present scan: 20 weeks 3 days Estimated weight and percentile: 365 g, 72nd percentile Anatomic survey: Neuro: Ventricles are non-dilated at less than 10 mm. Cisterna magna is normal at 3-11 mm. Cerebellum is normal in size and morphology. Nuchal skin fold: Normal at less than 6 mm between 14-21 weeks gestational age. Face: Nose and lips, facial profile are normal. Spine: No evidence for spina bifida. Heart: 4-chambered heart is present, with normal ventricular outflow tracts. Diaphragm: Diaphragm is intact. Stomach: Left-sided stomach is present. Kidneys: No hydronephrosis. Normal is less than 5 mm in 2nd trimester, less than 7 mm in 3rd trimester. Cord: 3-vessel cord has orthotopic insertion. Bladder: Normal in size. Extremities: All 4 extremities identified. IMPRESSION: 1. Randle living intrauterine at 20 weeks 3 days based on today's ultrasound. Fetus is in the 72nd percentile for weight. 2. Normal placenta and amniotic fluid. 3. Normal and complete anatomic survey. We strive to produce accurate, complete, and clear reports of imaging services. To assist us in improving patient care, this report was composed using standard report templates and voice recognition software. Therefore, it may contain abnormal punctuation, insertions and/or omissions. Occasional wrong-word or sound-alike substitutions may occur. Though we review the report and make efforts to correct it, we do recommend that the report be read carefully in proper context to recognize any text inaccuracies. Dictated by: Gomez Neal M.D. on 04/22/2025 at 14:22 Approved by: Gomez Neal M.D. on 04/22/2025 at 14:30
== END ==
LOC: US 09:03
PROVIDERS: Referring Provider Obstetrics & Gynecology; Visit Provider Obstetrics & Gynecology
DX: Z34.82 Encounter for supervision of other normal pregnancy, second trimester (principal); Z3A.20 20 weeks gestation of pregnancy
CPT/HCPCS: 76811